=== PATIENT | male | born 1960 | race Caucasian/White ===

== ENCOUNTER 2019-12-19 11:38 | Emergency (ER) | payer BC ==
[2019-12-19] MEDS ORDERED: Sodium Chloride 0.9% 10 ML Syringe FLUSH PRN (11:42)
--- NOTE | 2019-12-19 11:48 | EDM.PDOC ---
ED HPI GENERAL MEDICAL PROBLEM - General Stated Complaint: dizziness Time Seen by Provider: 12/19/19 11:38 Source of Information: Reports: Patient History Limitations: Reports: No Limitations - History of Present Illness INITIAL COMMENTS - FREE TEXT/NARRATIVE: Patient comes emergency department today from the clinic for further evaluation of dizziness. Patient went to the clinic this morning after he woke this morning about 4 AM and the room was spinning and it was difficult for him to walk and he was bouncing off the baig. He went to bed at that time. He then awoke at 7 AM and had identical symptomology and was walking down the hallway and the room was spinning and he was banging from side to side in the halls. He went to the clinic and they had concerns for a stroke because he exhibited ataxia and was sent to the emergency department at for further evaluation. Patient has complained of worsening tinnitus bilateral ears over the past 2 months. Pressure sensation in bilateral ears as well. His tinnitus is getting to the point where it is keeping him up at night. No recent falls or head injury. He denies a headache. No visual acuity changes. When he is laying still he does not have the sensation of the room spinning but the minute that he gets up to move he immediately senses it. No sinus congestion or pain. No chest pain no shortness of breath or difficulty breathing. No palpitations. No cough or congestion. No fever. No abdominal pain. He did vomit once this morning which she relates to the spinning sensation he was having. He is not actively nauseous. He has no paresthesias of his upper or lower extremities. He denies any change in the functionality of his upper or lower extremities. - Related Data Allergies Allergy/AdvReac Type Severity Reaction Status Date / Time No Known Allergies Allergy Verified 12/19/19 12:08 Home Meds: Home Meds Insulin Lispro Protamin/Lispro [Humalog Mix 75-25 Kwikpen] 30 unit SQ PCLUNCH [History] Levothyroxine 150 mcg PO ACBREAKFAST 12/19/19 [History] Meclizine [Antivert] 25 mg PO Q6H PRN #15 tab 12/19/19 [Rx] Pramipexole [Mirapex] 0.5 mg PO BEDTIME 12/19/19 [History] Semaglutide [Ozempic] 0.5 mg SQ Q7D 12/19/19 [History] glipiZIDE [Glucotrol] 10 mg PO BID 12/19/19 [History] metFORMIN HCl [Metformin HCl] 1,000 mg PO BID 12/19/19 [History] ED ROS GENERAL - Review of Systems Review Of Systems: Comprehensive ROS is negative, except as noted in HPI. ED EXAM, DIZZINESS - Physical Exam Exam: See Below Exam Limited By: No Limitations General Appearance: Alert, WD/WN, No Apparent Distress Eye Exam: Bilateral Eye: EOMI, Normal Inspection, PERRL Ears: Normal External Exam, Normal Canal, Hearing Grossly Normal, Normal TMs Nose: Normal Inspection, Normal Mucosa, No Blood Throat/Mouth: Normal Lips, Normal Teeth, Normal Voice. No: Normal Inspection ( Normal other than multiple absent teeth as well as fractured teeth nothing acutely concerning or infectious.) Head Exam: Atraumatic, Normocephalic Vertigo: worsens with head to R, reproducible, short duration Neck: Normal Inspection, Supple, Non-Tender Respiratory/Chest: No Respiratory Distress, Lungs Clear, Normal Breath Sounds, No Accessory Muscle Use, Chest Non-Tender Cardiovascular: Normal Peripheral Pulses, Regular Rate, Rhythm GI/Abdominal: Normal Bowel Sounds, Soft, Non-Tender, No Organomegaly Neurological: Alert, Normal Mood/Affect, Normal Dorsiflexion, CN II-XII Intact, Normal Reflexes, No Motor/Sensory Deficits, Oriented x 3 DTR: 1+: Patella (R), Patella (L), Achilles (R), Achilles (L) Back Exam: Normal Inspection, Full Range of Motion Extremities: Normal Inspection, Normal Range of Motion, No Pedal Edema, Normal Capillary Refill Psychiatric: Normal Affect, Normal Mood Skin Exam: Intact, Cool, Diaphoretic EKG INTERPRETATION EKG Date: 12/19/19 Time: 11:44 Rhythm: NSR Rate (Beats/Min): 93 Eunice: Normal P-Wave: Present QRS: Normal ST-T: Normal QT: Normal Comparison: No Change Course - Orders/Labs/Meds Orders: Active Orders 24 hr Category Date Time Status EKG Documentation Completion [RC] STAT Care 12/19/19 11:41 Active Sodium Chloride 0.9% [Saline Flush] Med 12/19/19 11:42 Active 10 ml FLUSH ASDIRECTED PRN Peripheral IV Insertion Adult [OM.PC] Stat Oth 12/19/19 11:41 Ordered Medication Orders Sodium Chloride (Saline Flush) 10 ml FLUSH ASDIRECTED PRN PRN Reason: Keep Vein Open Labs: Laboratory Tests 12/19/19 12/19/19 12/19/19 Range/Units 11:48 11:48 11:48 WBC 11.7 H (4.0-10.0) x10^3/uL RBC 5.59 (4.5-6.0) x10^6/uL Hgb 16.1 (14.0-18.0) g/dL Hct 47.9 (40.0-52.0) % MCV 85.7 (78.0-93.0) fL MCH 28.8 (26.0-32.0) pg MCHC 33.6 (32.0-36.0) g/dL RDW Coeff of Lori 14.1 (10.0-15.0) % Plt Count 283 (130-400) x10^3/uL Neut % (Auto) 76.5 (50.0-80.0) % Lymph % (Auto) 19.1 L (25.0-50.0) % Vermilion % (Auto) 3.8 (2.0-11.0) % Eos % (Auto) 0.3 (0.0-4.0) % Baso % (Auto) 0.3 (0.2-1.2) % PT 10.1 (10.0-12.8) SEC INR 0.9 L (2.0-3.5) APTT 23.7 L (24.0-36.0) SEC Sodium 137 (136-145) mmol/L Potassium 4.6 (3.5-5.1) mmol/L Chloride 101 (98-107) mmol/L Carbon Dioxide 29 (21-32) mmol/L Anion Gap 11.6 (10-20) mmol/L BUN 10 (7-18) mg/dL Creatinine 0.9 (0.70-1.30) mg/dL Est Cr Clr Drug Dosing TNP Estimated GFR (MDRD) > 60 Glucose 312 H (74-106) mg/dL Calcium 9.3 (8.5-10.1) mg/dL Corrected Calcium 9.54 (8.5-10.1) mg/dL Total Bilirubin 0.4 (0.2-1.0) mg/dL AST 14 L (15-37) U/L ALT 50 (16-63) U/L Alkaline Phosphatase 98 (46-116) U/L POC Troponin I (0.00-0.08) ng/mL Troponin I Cancelled Total Protein 7.6 (6.4-8.2) g/dL Albumin 3.7 (3.4-5.0) g/dL Globulin 3.9 Albumin/Globulin Ratio 0.95 TSH, Ultra Sensitive (0.358-3.74) uIU/mL Ethyl Alcohol < 3 (0-3) mg/dL 12/19/19 12/19/19 Range/Units 11:48 11:52 WBC (4.0-10.0) x10^3/uL RBC (4.5-6.0) x10^6/uL Hgb (14.0-18.0) g/dL Hct (40.0-52.0) % MCV (78.0-93.0) fL MCH (26.0-32.0) pg MCHC (32.0-36.0) g/dL RDW Coeff of Lori (10.0-15.0) % Plt Count (130-400) x10^3/uL Neut % (Auto) (50.0-80.0) % Lymph % (Auto) (25.0-50.0) % Vermilion % (Auto) (2.0-11.0) % Eos % (Auto) (0.0-4.0) % Baso % (Auto) (0.2-1.2) % PT (10.0-12.8) SEC INR (2.0-3.5) APTT (24.0-36.0) SEC Sodium (136-145) mmol/L Potassium (3.5-5.1) mmol/L Chloride (98-107) mmol/L Carbon Dioxide (21-32) mmol/L Anion Gap (10-20) mmol/L BUN (7-18) mg/dL Creatinine (0.70-1.30) mg/dL Est Cr Clr Drug Dosing Estimated GFR (MDRD) Glucose (74-106) mg/dL Calcium (8.5-10.1) mg/dL Corrected Calcium (8.5-10.1) mg/dL Total Bilirubin (0.2-1.0) mg/dL AST (15-37) U/L ALT (16-63) U/L Alkaline Phosphatase (46-116) U/L POC Troponin I 0.00 (0.00-0.08) ng/mL Troponin I Total Protein (6.4-8.2) g/dL Albumin (3.4-5.0) g/dL Globulin Albumin/Globulin Ratio TSH, Ultra Sensitive 4.532 H (0.358-3.74) uIU/mL Ethyl Alcohol (0-3) mg/dL Meds: Medications Generic Name Dose Route Start Last Admin Trade Name Freq PRN Reason Stop Dose Admin Sodium Chloride 10 ml 12/19/19 11:42 Saline Flush FLUSH ASDIRECTED PRN Keep Vein Open Discontinued Medications Generic Name Dose Route Start Last Admin Trade Name Freq PRN Reason Stop Dose Admin Diazepam 2.5 mg 12/19/19 15:17 12/19/19 15:23 Valium IVPUSH 12/19/19 15:18 2.5 mg STAT ONE Administration - Radiology Interpretation Free Text/Narrative:: CT of the head per radiology shows no acute intracranial findings. Mild chronic small vessel ischemic changes including a right anterior basal ganglia lacunar infarct. - Re-Assessments/Exams Free Text/Narrative Re-Assessment/Exam: 12/19/19 With the patient complaints upon arrival. The stroke team and code was activated upon his arrival and was initiated. 1210: I did attempt the Milton-Hallpike maneuver and was unable to see any rotary nystagmus of the eyes with the test. Physical therapy come and evaluate the patient. 12/19/19 13:47 Resting comfortably on the cot at this time. When he is sitting still he does not have any sensation of the vertigo which I really think is what his presentation is today especially without any evidence of weakness ataxia or other neurological findings. Complaints of increasing tinnitus over the past few months. Waiting for physical therapy to come and evaluate the patient. 12/19/19 16:31 [facility] did come and evaluate the patient was unable to reproduce any rotary nystagmus with a difficult bike either. Their recommendation is to have a full physical therapy evaluation on Thursday. I did give the patient some Valium in the emergency department which did improve his symptoms. We will send him home with some meclizine for the next few days to use on a as needed basis. And see physical therapy on Thursday. If he is not improving with physical therapy in the recent complaints of the tinnitus I would recommend him to see ENT as well. He is comfortable with this plan and his questions are answered. Departure - Departure Time of Disposition: 15:42 Disposition: Home, Self-Care 01 Clinical Impression: Vertigo, Tinnitus of both ears - Discharge Information *PRESCRIPTION DRUG MONITORING PROGRAM REVIEWED*: Not Applicable *COPY OF PRESCRIPTION DRUG MONITORING REPORT IN PATIENT CAROLIN: Not Applicable Prescriptions: Meclizine [Antivert] 25 mg PO Q6H PRN #15 tab PRN Reason: Dizziness Instructions: Vertigo, [id number], Dizziness, [id number] Referrals: Juliette Gonzales, [Primary Care Provider] - Additional Instructions: Make position changes slowly. When getting up from laying sit for aprox 1 minute and then stand for aprox 1 min and then start to ambulate. Increase fluids as much as possible over the next few days. See physical therapy thursday for recheck. Meclizine, 1 tablet every 6 hrs as needed for dizziness. Caution sedation. DO not drink alcohol or drive after taking this medication. RX sent to the pharmacy #15. Return to the ED if new or worsening symptoms. Follow up with PCP after your physical therapy appointment and consider ENT referral for the ringing in your ears as well as the vertigo type symptoms. Sooner recheck if not improving or worse. Sepsis Event Note - Focused Exam Date Exam was Performed: 12/19/19 Time Exam was Performed: 16:31 - My Orders Last 24 Hours: My Active Orders 12/19/19 11:41 EKG Documentation Completion [RC] STAT Peripheral IV Insertion Adult [OM.PC] Stat 12/19/19 11:42 Sodium Chloride 0.9% [Saline Flush] 10 ml FLUSH ASDIRECTED PRN - Assessment/Plan Last 24 Hours: My Active Orders 12/19/19 11:41 EKG Documentation Completion [RC] STAT Peripheral IV Insertion Adult [OM.PC] Stat 12/19/19 11:42 Sodium Chloride 0.9% [Saline Flush] 10 ml FLUSH ASDIRECTED PRN Assessment:: Vertigo Tinnitus bilaterally. Plan: Make position changes slowly. When getting up from laying sit for aprox 1 minute and then stand for aprox 1 min and then start to ambulate. Increase fluids as much as possible over the next few days. See physical therapy thursday for recheck. Meclizine, 1 tablet every 6 hrs as needed for dizziness. Caution sedation. DO not drink alcohol or drive after taking this medication. RX sent to the pharmacy #15. Return to the ED if new or worsening symptoms. Follow up with PCP after your physical therapy appointment and consider ENT referral for the ringing in your ears as well as the vertigo type symptoms. Sooner recheck if not improving or worse.
--- NOTE | 2019-12-19 12:13 | CT ---
[id number] CT/CT Head WO IV EXAM: NONCONTRAST HEAD CT INDICATION: VERTIGO. COMPARISON: None. DISCUSSION: The ventricles and sulci are normal in size and configuration. There are mild chronic small vessel ischemic changes. On the lateral margin of the anterior horn of the right lateral ventricle and the basal ganglia and white matter there is a chronic appearing lacunar infarct. No mass effect or midline shift. No acute hemorrhage or extra-axial fluid collection. No acute territorial infarct is identified. Mild focal mucosal thickening or small mucosal retention cysts in the inferior aspect of both maxillary sinuses and in the bilateral frontal sinuses. 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 IMPRESSION: 1. No acute intracranial findings. 2. Mild chronic small vessel ischemic changes including a right anterior basal ganglia lacunar infarct. Oseas Cruz MD 12/19/19 1217 Thank you for allowing us to participate in the care of your patient.
[2019-12-19 12:17] LABS: PTT,PARTIAL THROMBOPLSTIN TIME 23.7 SEC (24.0-36.0)
[2019-12-19] MEDS ORDERED: Lactated Ringers 1,000 ML IV SCH (12:20)
[2019-12-19 12:25] LABS: ANION GAP 11.6 mmol/L (10-20); CHLORIDE,CL 101 mmol/L (98-107); SODIUM,NA 137 mmol/L (136-145)
== END 2019-12-19 16:06 | disposition home or self-care (01) ==
LOC: VM.ED 11:38
DX: H93.13 Tinnitus, bilateral (principal); Z79.4 Long term (current) use of insulin; Z79.899 Other long term (current) drug therapy
CPT/HCPCS: 70450; 80053; 80307; 82962; 84443; 84484; 85025; 85610; 85730; 96361; 96374; 99284; J3360; J7120; 36415

== ENCOUNTER 2022-12-30 10:54 | Emergency (ER) | payer BC ==
[2022-12-30 11:36] LABS: ANION GAP 13.8 mmol/L (5-15); CHLORIDE,CL 100 mmol/L (98-107); ESTIMATED GFR 76 mL/min (>=60); SODIUM,NA 140 mmol/L (136-145)
[2022-12-30] MEDS ORDERED: predniSONE 20 MG Tab PO ONE (12:10)
[2022-12-30 12:19] LABS: CORONAVIRUS COVID-19 NAA NEGATIVE (NEGATIVE); RESPIRATORY SYNCYTIAL VIR NAA NEGATIVE (NEGATIVE)
[2022-12-30] MEDS ORDERED: Albuterol/Ipratropium 3.0-0.5 MG/3 ML Neb Soln NEB ONE (12:32)
[2022-12-30] MEDS ORDERED: Glucagon,Human Recombinant 1 MG Vial IM PRN (12:48)
[2022-12-30] MEDS ORDERED: Insulin Lispro 100 Units/ML 3 ML Vial SUBCUT ONE (12:48)
[2022-12-30] MEDS ORDERED: 50% Dextrose in Water 50 ML Syringe IVPUSH PRN (12:48)
[2022-12-30] MEDS ORDERED: Furosemide 40 MG/4 ML VIAL IV ONE (12:50)
[2022-12-30] MEDS ORDERED: Furosemide 40 MG Tab PO ONE ×2 (13:01→14:17)
== END 2022-12-30 14:42 | disposition home or self-care (01) ==
LOC: VM.ED 10:54
DX: R06.02 Shortness of breath (principal); E11.65 Type 2 diabetes mellitus with hyperglycemia; E78.00 Pure hypercholesterolemia, unspecified; E03.9 Hypothyroidism, unspecified; E66.9 Obesity, unspecified; Z68.30 Body mass index [BMI] 30.0-30.9, adult; Z79.899 Other long term (current) drug therapy; Z87.891 Personal history of nicotine dependence; Z20.822 Contact with and (suspected) exposure to COVID-19
CPT/HCPCS: 0241U; 36415; 71046; 80053; 82947; 83880; 85025; 85610; 94640; 99284; 99285; A9270-GY; J1815-GY; J7512; J7620-GY